=== PATIENT | male | born 1945 | race Caucasian/White ===

== ENCOUNTER 2017-01-19 11:18 | Day surgery (SDC) | payer MEDICARE | END 2017-01-19 11:37 | disposition home or self-care (01) | LOC: GIL 11:18 | PROVIDERS: ATTEND Internal Medicine Gastroenterology | DX: Z12.11 Encounter for screening for malignant neoplasm of colon (principal); Z53.9 Procedure and treatment not carried out, unspecified reason ==

== ENCOUNTER 2019-01-10 19:55 | Emergency (ER) | payer MEDICARE, OTHER ==
[~2019-01-10] VITALS: Ht 182.9 cm; Wt 64.5 kg
[~2019-01-10 19:55] MED LIST: CEPH-443 PO; CLOT30CR24 TOP; IBUP-1561 PO; SULF1TAB31 PO
[2019-01-10 19:58] VITALS: BP 136/72; PULSE 97; RESP 18; Ht 182.9 cm; Wt 64.5 kg
--- NOTE | 2019-01-10 21:50 | ERD ---
ER Documentation Chief Complaint Chief Complaint RIGHT ANKLE WOUND X"WEEKS"; HX OF DM HPI 73-year-old male past medical history of type 2 diabetes presenting to the emergency department complaining of an erythematous painful wound to the back of the right leg just superior to the Achilles region for the past 2 months but worsening over the past several days. He denies any fevers. His pain is moderate to severe and intermittent. He took no medication for relief of symptoms. He denies any other symptoms at this time. ROS All systems reviewed and are negative except as per history of present illness. Medications Home Meds Active Scripts Clotrimazole* (Clotrimazole* AF) 1% - 30 Gm Cream.gm., 1 APPLIC TOP BID for 7 Days, TUB Prov:CARYN ETIENNE PA-C 01/10/19 Ibuprofen* (Motrin*) 400 Mg Tab, 400 MG PO Q6, #30 TAB Prov:CARYN ETIENNE PA-C 01/10/19 Sulfamethoxazole/Trimethoprim* (Bactrim Ds* Tablet) 1 Each Tablet, 1 TAB PO BID, #14 TAB Prov:CARYN ETIENNE PA-C 01/10/19 Cephalexin* (Keflex*) 500 Mg Capsule, 500 MG PO QID for 7 Days, CAP Prov:CARYN ETIENNE PA-C 01/10/19 Allergies Allergies: Coded Allergies: No Known Allergy (Unverified , 01/10/19) PMhx/Soc Hx Miscellaneous Medical Probl: Yes (DMII) Hx Alcohol Use: No Hx Substance Use: No Hx Tobacco Use: No Smoking Status: Never smoker FmHx Family History: No diabetes Physical Exam Vitals Vital Signs Date Temp Pulse Resp B/P (MAP) Pulse Ox O2 O2 Flow FiO2 Time Delivery Rate 01/10/19 98.9 97 18 136/72 99 19:58 (93) Physical Exam Const: No acute distress Head: Atraumatic Eyes: Normal Conjunctiva ENT: Normal External Ears, Nose and Mouth. Neck: Full range of motion. No meningismus. Resp: Clear to auscultation bilaterally Cardio: Regular rate and rhythm, no murmurs Skin: No petechiae or rashes Back: No midline or flank tenderness Ext: There is an approximate 5 cm x 5 cm area of erythema with some maceration noted just superior to the right Achilles region on the dorsum of the right lower extremity. No streaking. No crepitus on palpation. No pitting edema to the right lower extremity. Neur: Awake and alert Psych: Normal Mood and Affect Procedures/MDM 73-year-old male presents the emergency department with signs and symptoms most consistent with uncomplicated cellulitis. No evidence to suggest necrotizing fasciitis, sepsis, serious bacterial infection, deep space infection, DVT, or other emergent process. Patient is appropriate for discharge and further outpatient management with prescription for clotrimazole, ibuprofen, Keflex, Bactrim. Differentials included bacterial, fungal etiology. Patient advised to have 24 to 48-hour follow-up with his primary care physician and return here immediately for any new or concerning symptoms. Patient was in agreement with the diagnosis, plan company for follow-up, return precautions. Departure Diagnosis: Primary Impression: Cellulitis Condition: Fair Patient Instructions: Cellulitis Referrals: [facility] YOU HAVE RECEIVED A MEDICAL SCREENING EXAM AND THE RESULTS INDICATE THAT YOU DO NOT HAVE A CONDITION THAT REQUIRES URGENT TREATMENT IN THE EMERGENCY DEPARTMENT. FURTHER EVALUATION AND TREATMENT OF YOUR CONDITION CAN WAIT UNTIL YOU ARE SEEN IN YOUR DOCTORS OFFICE WITHIN THE NEXT 1-2 DAYS. IT IS YOUR RESPONSIBILITY TO MAKE AN APPOINTMENT FOR FOLOW-UP CARE. IF YOU HAVE A PRIMARY DOCTOR --you should call your primary doctor and schedule an appointment IF YOU DO NOT HAVE A PRIMARY DOCTOR YOU CAN CALL OUR PHYSICIAN REFERRAL HOTLINE AT IF YOU CAN NOT AFFORD TO SEE A PHYSICIAN YOU CAN CHOSE FROM THE FOLLOWING [facility] [address] [facility] [facility] [address] [facility] [facility] [address] [facility] [facility] [address] [facility]. [facility] [address] [facility] [facility]. [address] Additional Instructions: Call your primary care doctor TOMORROW for an appointment during the next 1-2 days.See the doctor sooner or return here if your condition worsens before your appointment time. CARYN ETIENNE PA-C Jan 10, 2019 21:50
== END 2019-01-10 22:23 | disposition home or self-care (01) ==
LOC: FTE 19:55
DX: L03.115 Cellulitis of right lower limb (principal); E11.9 Type 2 diabetes mellitus without complications
CPT/HCPCS: 99283